=== PATIENT | male | born 1960 | race Caucasian/White ===

== ENCOUNTER → 2018-08-12 | Outpatient (CLI) | payer BC ==
[~2018-08-12] MED LIST: ANTI-HYPERTENSIVE; DIURETIC
--- NOTE | 2018-08-12 13:13 | Diagnostic Imaging Report ---
INDICATION: Chronic renal disease. TECHNIQUE: Multiple real-time grayscale sonographic images, color and duplex Doppler images were obtained of the urinary system. FINDINGS: The aortic velocity is 102 cm/sec. The RIGHT kidney measures 12.4 x 6.0 x 6.3 cm. The right renal parenchyma and collecting system appear unremarkable. The right renal artery is visualized in its mid and distal aspect. Non-visualization of the proximal right renal artery. The maximum renal artery velocity is 103cm/sec. The maximum renal artery/aortic ratio is 1.0. The LEFT kidney reported as surgically absent. There is presence of a right ureteral jet. Urinary bladder appearing unremarkable. Prevoid Volume: 179 mL. Postvoid volume: 1 mL. IMPRESSION: 1. Unremarkable right renal ultrasound with doppler. 2. Post left nephrectomy. 3. Unremarkable appearance urinary bladder. (RA/AO ratios > 3.0 may suggest potential hemodynamically significant stenosis.) Dictated by: Dictated on workstation # [id number]
== END ==
LOC: RAD 10:06
PROVIDERS: ATTEND Nurse Practitioner
DX: I12.9 Hypertensive chronic kidney disease with stage 1 through stage 4 chronic kidney disease, or unspecified chronic kidney disease (principal); N18.3 Chronic kidney disease, stage 3 (moderate); I51.7 Cardiomegaly; I34.0 Nonrheumatic mitral (valve) insufficiency; J44.9 Chronic obstructive pulmonary disease, unspecified; E66.9 Obesity, unspecified; E79.0 Hyperuricemia without signs of inflammatory arthritis and tophaceous disease; E78.5 Hyperlipidemia, unspecified; G47.33 Obstructive sleep apnea (adult) (pediatric); R73.01 Impaired fasting glucose; E55.9 Vitamin D deficiency, unspecified; N25.81 Secondary hyperparathyroidism of renal origin; Z90.5 Acquired absence of kidney; Z72.0 Tobacco use
CPT/HCPCS: 76770; 93975

== ENCOUNTER 2021-10-09 08:39 | Emergency (ER) | payer BC ==
[~2021-10-09] VITALS: Ht 175.2 cm; Wt 140.6 kg
[2021-10-09 08:59] LABS: BASOPHILS % (AUTO) 1 % (0-10); EOSINOPHILS # (AUTO) 0.2 10^3/uL (0.0-0.3); EOSINOPHILS % (AUTO) 2 % (0-10); HEMATOCRIT 44 % (40-54); HEMOGLOBIN 15.2 g/dL (13.3-17.7); LYMPHOCYTES # (AUTO) 1.7 10^3/uL (1.0-4.0); LYMPHOCYTES % (AUTO) 22 % (12-44); MEAN CORPUSCULAR HEMOGLOBIN 31 pg (25-34); MEAN CORPUSCULAR HGB CONC 34 g/dL (32-36); MEAN CORPUSCULAR VOLUME 90 fL (80-99); MONOCYTES # (AUTO) 0.4 10^3/uL (0.0-1.0); MONOCYTES % (AUTO) 5 % (0-12); NEUTROPHILS # (AUTO) 5.4 10^3/uL (1.8-7.8); NEUTROPHILS % (AUTO) 69 % (42-75); PLATELET COUNT 196 10^3/uL (130-400); WHITE BLOOD COUNT 7.8 10^3/uL (4.3-11.0)
[2021-10-09 09:18] LABS: POTASSIUM 4.4 MMOL/L (3.6-5.0)
[2021-10-09 09:19] LABS: CALCIUM 10.2 MG/DL (8.5-10.1)
[2021-10-09 09:23] LABS: CREATININE SERUM 1.53 MG/DL (0.60-1.30)
[2021-10-09 09:46] LABS: TSH (THYROID ANALYZER) 3.12 UIU/ML (0.35-4.94)
--- NOTE | 2021-10-09 11:37 | ED Cardiac General ---
History of Present Illness General Chief Complaint: Cardiac/General Problems Stated Complaint: AFIB Nursing Triage Note: PT AMB TO [facility] 6 AFTER BEING SENT FROM [facility] FOR NEW ONSET OF AFIB. DENIES HX OF AFIB. WENT TO [facility] FOR RIGHT SHOULDER SCOPE. STATES HE FEELS SOA. Source: patient Exam Limitations: no limitations History of Present Illness Date Seen by Provider: Oct 09, 2021 Time Seen by Provider: 08:52 Initial Comments This 61-year-old gentleman presents to the emergency room with concerns about atrial fibrillation and bradycardia identified at the surgery center in [place] where he was checked into have shoulder surgery today. Instead of having surgery, he was diverted to the emergency room for further evaluation. Heart rate is in the 40s. Patient and provide history. She states he has been unusually tired and coming in from work early in recent days. He also has notable lower extremity edema which is chronic. He was previously on diuretics but stopped due to concerns about his kidney health. He has a unilateral kidney after nephrectomy. He had ureteral and kidney damage after complications from a basket retrieval for kidney stone treatment. Patient notes history of obstructive sleep apnea but is noncompliant with his CPAP. He has no known history of arrhythmias prior to today. He is on multiple antihypertensive medications including rate limiting medications, clonidine and carvedilol. His primary care provider is Dr. Tavarez. Allergies and Home Medications Allergies Uncoded Allergies: Anesthesia, unknown med (Allergy, Severe, Anaphylaxis, 10/09/21) Patient Home Medication List Home Medication List Reviewed: Yes Apixaban (Eliquis) 5 Mg Tablet, 5 MG PO BID Prescribed by: CINTHYA HAAS on 10/09/21 1142 Triamterene/Hydrochlorothiazid (Triamterene-Hctz 37.5-25 mg Cp) 37.5 Mg-25 Mg Capsule, 1 EACH PO DAILY Prescribed by: CINTHYA HAAS on 10/09/21 1142 [Anti-Hypertensive] , (Reported) Entered as Reported by: AVA CAMACHO on 03/24/07 1406 [Diuretic] , (Reported) Entered as Reported by: AVA CAMACHO on 03/24/07 1405 Review of Systems Review of Systems Constitutional: see HPI EENTM: No Symptoms Reported Respiratory: No Symptoms Reported Cardiovascular: See HPI Gastrointestinal: No Symptoms Reported Genitourinary: No Symptoms Reported Musculoskeletal: see HPI Skin: no symptoms reported Psychiatric/Neurological: No Symptoms Reported Endocrine: No Symptoms Reported Hematologic/Lymphatic: No Symptoms Reported Past Axsfmyg-Rdwfqa-[id number] Hx Patient Social History Tobacco Use?: Yes Smokeless Tobacco Frequency: Current Everyday User Use of E-Cig and/or Vaping dev: Unable to obtain Substance use?: No Alcohol Use?: Yes Alcohol Frequency: Rarely Pt feels they are or have been: No Past Medical History Surgeries: Yes Gallbladder, Nephrectomy, Renal (Ureteral stones) Respiratory: Yes Sleep Apnea Cardiac: Yes Chronic Edema/Swelling, Hypertension Reproductive Disorders: No Genitourinary: Yes Kidney Stones, Renal Failure Gastrointestinal: No Musculoskeletal: Yes (Shoulder pain) Endocrine: No HEENT: No Cancer: No Psychosocial: No Integumentary: No Physical Exam Vital Signs Vital Signs - First Documented 10/09/21 08:44 Temp 36.5 Pulse 51 Resp 14 B/P (MAP) 145/75 (98) Pulse Ox 96 O2 Delivery Room Air Capillary Refill : Less Than 3 Seconds Height, Weight, BMI Height: 5'9.00" Weight: 301lbs. oz. 136.628183fc; 45.00 BMI Method: General Appearance: No Apparent Distress, WD/WN, Obese HEENT: PERRL/EOMI Neck: Normal Inspection; No JVD Respiratory: Lungs Clear, Normal Breath Sounds, No Accessory Muscle Use Cardiovascular: No Murmur, Bradycardia, Irregularly Irregular Gastrointestinal: Non Tender, Soft Extremity: Non Tender, Pedal Edema, Swelling Neurologic/Psychiatric: Alert, Oriented x3, No Motor/Sensory Deficits, Normal Mood/Affect, senior environmental engineer II-XII Norm as Tested Skin: Normal Color, Warm/Dry Progress/Results/Core Measures Results/Orders Lab Results Laboratory Tests Test 10/09/21 08:50 Range/Units White Blood Count 7.8 4.3-11.0 10^3/uL Red Blood Count 4.90 4.30-5.52 10^6/uL Hemoglobin 15.2 13.3-17.7 g/dL Hematocrit 44 40-54 % Mean Corpuscular Volume 90 80-99 fL Mean Corpuscular Hemoglobin 31 25-34 pg Mean Corpuscular Hemoglobin Concent 34 32-36 g/dL Red Cell Distribution Width 12.6 10.0-14.5 % Platelet Count 196 130-400 10^3/uL Mean Platelet Volume 10.0 9.0-12.2 fL Immature Granulocyte % (Auto) 0 % Neutrophils (%) (Auto) 69 42-75 % Lymphocytes (%) (Auto) 22 12-44 % Monocytes (%) (Auto) 5 0-12 % Eosinophils (%) (Auto) 2 0-10 % Basophils (%) (Auto) 1 0-10 % Neutrophils # (Auto) 5.4 1.8-7.8 10^3/uL Lymphocytes # (Auto) 1.7 1.0-4.0 10^3/uL Monocytes # (Auto) 0.4 0.0-1.0 10^3/uL Eosinophils # (Auto) 0.2 0.0-0.3 10^3/uL Basophils # (Auto) 0.0 0.0-0.1 10^3/uL Immature Granulocyte # (Auto) 0.0 0.0-0.1 10^3/uL Sodium Level 141 135-145 MMOL/L Potassium Level 4.4 3.6-5.0 MMOL/L Chloride Level 106 98-107 MMOL/L Carbon Dioxide Level 23 21-32 MMOL/L Anion Gap 12 5-14 MMOL/L Blood Urea Nitrogen 16 7-18 MG/DL Creatinine 1.53 H 0.60-1.30 MG/DL Estimat Glomerular Filtration Rate 51 BUN/Creatinine Ratio 10 Glucose Level 172 H 70-105 MG/DL Calcium Level 10.2 H 8.5-10.1 MG/DL Magnesium Level 2.0 1.6-2.4 MG/DL TSH [place] Testing 3.12 0.35-4.94 UIU/ML My Orders Orders - CINTHYA VELASCO MD Ekg Tracing (10/09/21 08:42) Basic Metabolic Panel (10/09/21 08:53) Cbc With Automated Diff (10/09/21 08:53) Magnesium (10/09/21 08:53) Thyroid Analyzer (10/09/21 08:53) Ed Iv/Invasive Line Start (10/09/21 08:53) Monitor-Rhythm Ecg Trace Only (10/09/21 08:53) Apixaban Tablet (Eliquis Tablet) (10/09/21 11:45) Medications Given in ED Current Medications Medications Dose Ordered Sig/Lamar Route Start Time Stop Time Status Last Admin Dose Admin Apixaban 10 mg ONCE ONCE PO 10/09/21 11:45 10/09/21 11:46 DC 10/09/21 12:36 10 MG Vital Signs/I&O 10/09/21 10/09/21 08:44 12:45 Temp 36.5 Pulse 51 59 Resp 14 11 B/P (MAP) 145/75 (98) 130/68 Pulse Ox 96 96 O2 Delivery Room Air Room Air Blood Pressure Mean: 98 Progress Progress Note : Progress Note Patient remained stable during his ER visit. I discussed the case with Dr. Forrest. He recommended stopping clonidine to improve heart rate and replacing it with triamterene/hydrochlorothiazide at a low dose to help with swelling and hypertension. Patient was started on Eliquis for anticoagulation. We did discuss risks and precautions related to anticoagulation. He reported no contraindications to anticoagulation. Appointment was made for Wednesday at Dr. Forrest's clinic. See discharge instructions for further discussion. Initial ECG Impression Date: Oct 09, 2021 Initial ECG Impression Time: 08:47 Initial ECG Rate: 63 Initial ECG Rhythm: A Fib/Flutter Initial ECG Impression: Atrial Fibrillation Comment Atrial fibrillation with no ST elevation or depression. No abnormal intervals or axis deviation. Bradycardia not documented on this EKG but is present on the monitor consistently. Departure Impression Primary Impression: New onset atrial fibrillation Additional Impression: Bradycardia Disposition: 01 HOME, SELF-CARE Condition: Stable Departure-Patient Inst. Decision time for Depature: 11:33 Referrals: ROCÍO TAVAREZ DO (PCP) Primary Care Physician CAROLINE TAVAREZ, MICAELA (Family) Primary Care Physician SILVANO FORREST MD FACP FAC CCDS Patient Instructions: Atrial Fibrillation, Going Home on Blood Thinners Add. Discharge Instructions: Stop clonidine. This should improve your heart rate. If heart rate still remains too low, the dose of carvedilol may need to be lowered or you may need to stop carvedilol as well. Start triamterene/hydrochlorothiazide as prescribed. If you are hesitant to take it every day due to your kidney function, you may start with every other day until you know how your kidneys respond. Start Eliquis (blood thinner) as prescribed. Avoid unnecessary activities that would place you at risk for trauma while on this medication. If you experience any unusual bleeding, return to the emergency room immediately. If you experience any trauma such as motor vehicle accident, head injury, etc. please also present to the emergency room promptly. Follow-up with Dr. Forrest (environmental health safety manager) at 2:00 PM on October 13. Please bring a photo ID, insurance information, and medications in the original bottles. See contact information below. If you have persistent blood pressures greater then 160 on the top number or 100 on the bottom number, please call for further instructions or return to the ER. If you have persistent heart rate less than 45, please also call for further instruction or return to the ER. Also return to the emergency room if you develop lightheadedness, dizziness, shortness of breath, or chest pain. Follow-up with your primary care provider soon as possible. All discharge instructions reviewed with patient and/or family. Voiced understanding. Scripts Apixaban (Eliquis) 5 Mg Tablet 5 MG PO BID for 30 Days, #74 TAB TAKE 2 TABLETS BID X 7 DAYS, THEN 1 TABLET BID Prov: CINTHYA VELASCO MD 10/09/21 Triamterene/Hydrochlorothiazid (Triamterene-Hctz 37.5-25 mg Cp) 37.5 Mg-25 Mg Capsule 1 EACH PO DAILY, #30 CAP Prov: CINTHYA VELASCO MD 10/09/21 Copy Copies To 1: ROCÍO TAVAREZ DO Copies To 2: SILVANO FORREST MD [facility] CINTHYA VELASCO MD Oct 09, 2021 11:37
[2021-10-09] MEDS ORDERED: APIX5TAB PO (11:42)
[2021-10-09] MEDS ORDERED: TRIA1CAP84 PO (11:42)
[2021-10-09] MEDS ORDERED: APIXABAN 5 MG (ELIQUIS) TABLET PO ONE (11:45)
[2021-10-09 12:45] VITALS: BP 130/68
== END 2021-10-09 12:45 | disposition home or self-care (01) ==
LOC: EDUNIT# 08:39 → ER 08:42
DX: I48.91 Unspecified atrial fibrillation (principal); I10 Essential (primary) hypertension; G47.33 Obstructive sleep apnea (adult) (pediatric); F17.220 Nicotine dependence, chewing tobacco, uncomplicated; Z99.89 Dependence on other enabling machines and devices; Z91.14 Patient's other noncompliance with medication regimen; Z79.899 Other long term (current) drug therapy
CPT/HCPCS: 36415; 80048; 83735; 84443; 85025; 93005; 93041

== ENCOUNTER → 2021-10-15 | Outpatient (CLI) | payer BC ==
[~2021-10-15] MED LIST changes: +APIX5TAB PO; +TRIA1CAP84 PO
== END ==
LOC: CARD 09:14
PROVIDERS: ATTEND Internal Medicine Cardiovascular Disease
DX: I51.7 Cardiomegaly (principal)
CPT/HCPCS: 93306

== ENCOUNTER 2021-10-21 09:00 | Day surgery (SDC) | payer BC ==
[2021-10-21] VITALS (13 sets, daily range): BP systolic 124–160; BP diastolic 68–87
[~2021-10-21] VITALS: Ht 175.3 cm; Wt 134.7 kg
[2021-10-21 07:27] LABS: HEMATOCRIT 45 % (40-54); HEMOGLOBIN 15.5 g/dL (13.3-17.7); MEAN CORPUSCULAR HEMOGLOBIN 31 pg (25-34); MEAN CORPUSCULAR HGB CONC 34 g/dL (32-36); MEAN CORPUSCULAR VOLUME 90 fL (80-99); MEAN PLATELET VOLUME 10.4 fL (9.0-12.2); PLATELET COUNT 222 10^3/uL (130-400); WHITE BLOOD COUNT 9.7 10^3/uL (4.3-11.0)
[2021-10-21 07:50] LABS: PROTHROMBIN TIME PATIENT 13.9 SEC (12.2-14.7)
[2021-10-21 07:51] LABS: ALBUMIN 4.1 GM/DL (3.2-4.5); BILIRUBIN,TOTAL 0.7 MG/DL (0.1-1.0); CALCIUM 10.3 MG/DL (8.5-10.1); CREATININE SERUM 2.05 MG/DL (0.60-1.30); POTASSIUM 4.2 MMOL/L (3.6-5.0); TOTAL PROTEIN 7.4 GM/DL (6.4-8.2)
[~2021-10-21 09:00] MED LIST changes: +ACET325T38 PO; +ALLO100T PO; +AMLO-251 PO; +CARV25TA PO; +HEParin (CATH LAB) 2,000 ML IV ONE; +LIDOCAINE 1% INJ 20 ML VIAL ONE; +LISI20TA26 PO; +NS IV 1000 ML 1,000 ML IV SCH; +NS IV 1000 ML 1,000 ML ONE; +TMSL.4C PO; +TRAM50TA3 PO
[2021-10-21] MEDS ORDERED: fentaNYL INJ 100 MCG/2 ML AMP ONE (09:49)
[2021-10-21] MEDS ORDERED: MIDAZOLAM 5 MG/5 ML (VERSED) VIAL ONE (09:49)
--- NOTE | 2021-10-21 11:03 | Cardiac Procedure Note-CS/ASA ---
Pre-Procedure Note Pre-Op Procedure Note H&P Reviewed The H&P was reviewed, patient examined and no changes noted. Date H&P Reviewed: Oct 21, 2021 Time H&P Reviewed: 10:00 Conscious Sedation Pre-Proced Time 10:00 ASA Score 4 For ASA 3 and 4: Consider anesthesia and medical clearance. Also, for patients with a history of failed moderate sedation consider anesthesia. Airway Lungs Heart ASA score ASA 1: a normal healthy patient ASA 2: a patient with a mild systemic disease (mid diabetes, controlled hypertension, obesity ASA 3: a patient with a severe systemic disease that limits activity (angina, COPD, prior Myocardial infarction) ASA 4: a patient with an incapacitating disease that is a constant threat to life (CHF, renal failure) ASA 5: a moribund patient not expected to survive 24 hrs. (ruptured aneurysm) ASA 6: a declared brain- patient whose organs are being harvested. For emergent operations, add the letter E after the classification Mallampati Classification Grade 2 Sedation Plan Analgesia, Amnesia, Plan communicated to team members The patient is an appropriate candidate to undergo the planned procedure, sedation, and anesthesia. The patient immediately re-assessed prior to indication. SILVANO DOHERTY MD FACP FAC CCDS Oct 21, 2021 11:03
[2021-10-21] MEDS ORDERED: PATIENT MAY USE OWN MEDS, ALL PO SCH (11:15)
[2021-10-21] MEDS ORDERED: ACETAMINOPHEN 325 MG TABLET PO PRN (11:15)
[2021-10-21] MEDS: NS IV 1000 ML 1,000 ML IV SCH (12:30)
--- NOTE | 2021-10-21 16:41 | CARDIAC CATHETERIZATION ---
DATE OF SERVICE: 10/21/2021 CARDIAC CATHETERIZATION REPORT INDICATION FOR PROCEDURE: The patient is a 61-year-old gentleman, who has multiple coronary artery disease risk factors and has been experiencing shortness of breath and chest discomfort that is consistent with new onset angina. Given symptoms and multiple coronary artery disease risk factors, cardiac catheterization was carried out today after having obtained an informed consent. His risk for contrast nephropathy is higher than usual, given baseline renal insufficiency. This was discussed with him in detail prior to the procedure. He provided informed consent. DESCRIPTION OF PROCEDURE: He was brought to the cardiac catheterization laboratory in a fasting state. Vigorous perioperative hydration was carried out starting before the procedure, continuing during the procedure, and continuing afterwards. This was to reduce risk of contrast nephropathy. Also, a minimal amount of contrast was used (12). We used the Modified Seldinger technique to advance a 5-Sammarinese sheath in the right femoral artery. We used a 5-Sammarinese JL4 catheter for left angiography, 5-Sammarinese JR4 catheter for right coronary angiography. We used a pigtail catheter for left heart catheterization and left ventricular angiography was not performed to conserve contrast. Minimal amount of dye was used to carry out angiography of the right femoral artery and a Mynx was used to achieve hemostasis. The total amount of contrast used during the study was 12 mL. HEMODYNAMICS: Left ventricular end-diastolic pressure following coronary angiography was 6 mmHg. There was no significant pressure gradient on pullback across the aortic valve. CORONARY ANGIOGRAPHY: Left main coronary artery, left circumflex artery, left anterior descending artery, right coronary artery are free of angiographically significant coronary artery disease. Right coronary artery is dominant. CONCLUSIONS: 1. No significant coronary artery disease is seen on this study. 2. Normal left ventricular end-diastolic pressure. DISCUSSION AND RECOMMENDATIONS: Based on results of the study, these symptoms do not appear to be of cardiac origin. Continuing risk factor modification is advised. Vigorous perioperative hydration is being continued to reduce risk of contrast nephropathy. Job ID: [id number] DocumentID: [id number] Dictated Date: 10/21/2021 10:53:11 Pathologist Date: 10/21/2021 16:40:49 Dictated By: SILVANO DOHERTY MD, MA, FACP, FACC,
[2021-10-21] MEDS ORDERED: APIXABAN 5 MG (ELIQUIS) TABLET PO SCH (21:00)
[2021-10-21] MEDS ORDERED: TAMSULOSIN 0.4 MG (FLOMAX) CAP PO SCH (21:00)
[2021-10-21] MEDS ORDERED: ALLOPURINOL 100 MG (ZYLOPRIM) TAB PO SCH (21:00)
[2021-10-21] MEDS ORDERED: amLODIPine 10 MG (NORVASC) TAB PO SCH (21:00)
[2021-10-22] MEDS: NS IV 1000 ML 1,000 ML IV SCH (01:23)
[2021-10-22 04:00] VITALS: BP 135/71
[2021-10-22 06:12] LABS: BASOPHILS # (AUTO) 0.1 10^3/uL (0.0-0.1); BASOPHILS % (AUTO) 1 % (0-10); EOSINOPHILS # (AUTO) 0.2 10^3/uL (0.0-0.3); EOSINOPHILS % (AUTO) 3 % (0-10); HEMATOCRIT 43 % (40-54); HEMOGLOBIN 14.8 g/dL (13.3-17.7); LYMPHOCYTES # (AUTO) 2.3 10^3/uL (1.0-4.0); LYMPHOCYTES % (AUTO) 27 % (12-44); MEAN CORPUSCULAR HEMOGLOBIN 31 pg (25-34); MEAN CORPUSCULAR HGB CONC 34 g/dL (32-36); MEAN CORPUSCULAR VOLUME 91 fL (80-99); MEAN PLATELET VOLUME 10.9 fL (9.0-12.2); MONOCYTES # (AUTO) 0.4 10^3/uL (0.0-1.0); MONOCYTES % (AUTO) 5 % (0-12); NEUTROPHILS # (AUTO) 5.6 10^3/uL (1.8-7.8); NEUTROPHILS % (AUTO) 65 % (42-75); PLATELET COUNT 173 10^3/uL (130-400); WHITE BLOOD COUNT 8.7 10^3/uL (4.3-11.0)
[2021-10-22 06:36] LABS: POTASSIUM 4.2 MMOL/L (3.6-5.0)
[2021-10-22 06:37] LABS: CALCIUM 9.9 MG/DL (8.5-10.1)
[2021-10-22 06:41] LABS: CREATININE SERUM 1.54 MG/DL (0.60-1.30)
[2021-10-22 06:44] LABS: MAGNESIUM 1.8 MG/DL (1.6-2.4)
[2021-10-22 08:25] VITALS: BP 133/83
--- NOTE | 2021-10-22 09:21 | Progress Note - Cardiology ---
Cardiology SOAP Progress Note Subjective: Sitting up on the side of the bed No c/o CP, SOB or palpitations No c/o right groin discomfort Wants to go home Objective: I&O/Vital Signs 10/21/21 10/22/21 10/22/21 10/22/21 23:54 01:00 04:00 06:27 Temp 37.0 Pulse 52 63 49 45 Resp 15 18 B/P (MAP) 141/82 (100) 135/71 (92) Pulse Ox 95 95 O2 Delivery Room Air Room Air 10/22/21 10/22/21 08:00 08:25 Temp 36.7 Pulse 48 Resp 17 B/P (MAP) 133/83 (100) Pulse Ox 98 97 O2 Delivery Room Air Room Air 10/22/21 00:00 Intake Total 1650 ml Balance 1650 ml Weight (Pounds): 301 Weight (Calculated Kilograms): 136.663881 Side: right Groin site without hematoma: Yes Bruising: mild bruising Constitutional: AAO x 3, well-developed, well-nourished Respiratory: No accessory muscle use, No respiratory distress; chest expansion is symmetric, chest is bilaterally symmetric, lungs clear to auscultation Cardiovascular: regular rate-rhythm; No JVD; S1 and S2 Gastrointestional: No tender; soft, round, audible bowel sounds Extremities: no lower extremity edema bilateral Neurologic/Psychiatric: grossly intact (moves all extremities) Skin: No rash on exposed areas, No ulcerations on exposed areas Results/Procedures: Labs Laboratory Tests 10/22/21 05:24: White Blood Count 8.7, Red Blood Count 4.77, Hemoglobin 14.8, Hematocrit 43, Mean Corpuscular Volume 91, Mean Corpuscular Hemoglobin 31, Mean Corpuscular Hemoglobin Concent 34, Red Cell Distribution Width 12.4, Platelet Count 173, Mean Platelet Volume 10.9, Immature Granulocyte % (Auto) 0, Neutrophils (%) (Auto) 65, Lymphocytes (%) (Auto) 27, Monocytes (%) (Auto) 5, Eosinophils (%) (Auto) 3, Basophils (%) (Auto) 1, Neutrophils # (Auto) 5.6, Lymphocytes # (Auto) 2.3, Monocytes # (Auto) 0.4, Eosinophils # (Auto) 0.2, Basophils # (Auto) 0.1, Immature Granulocyte # (Auto) 0.0, Sodium Level 138, Potassium Level 4.2, Chloride Level 108H, Carbon Dioxide Level 19L, Anion Gap 11, Blood Urea Nitrogen 20H, Creatinine 1.54H, Estimat Glomerular Filtration Rate 50, BUN/Creatinine Ratio 13, Glucose Level 148H, Calcium Level 9.9, Magnesium Level 1.8 Laboratory Tests 10/21/21 07:21 10/22/21 05:24 A/P: Assessment: Newly dx a-fib at time of ED visit on 10-09-2021 - OAC with Eliquis started to reduce risk of thromboembolic stroke - clonidine d/c' because of bradycardia - Coreg dose reduced d/t bradycardia (albeit asymptomatic) Cardiac cath of 10-21-21: No significant coronary artery disease is seen on this study. Normal left ventricular end-diastolic pressure. Echocardiogram of 10-15-21 showed LVEF 60-65% DM II (blood sugar 172 fasting) Severe hypertension - Dyazide started to control bp Single kidney (R kidney). L kidney reportedly atrophic CKD - Cr improved following IVF hydration Obesity, BMI approx 44 JUAN R - non-compliant with treatment - advised compliance Plan: S/P cardiac cath (see report from 10-21-21) Renal function improved following IV hydration D/t bradycardia we are reducing Coreg to 12.5mg BID Continue Eliquis for stroke prophylaxis Advise compliance with CPAP tx Advise f/u in 4 weeks Advise BMP in one week Ok to discharge home RUMA ODOM Oct 22, 2021 09:21
[2021-10-22] MEDS ORDERED: CARV12.53 PO (09:31)
[2021-10-22] MEDS ORDERED: TRIA1CAP84 PO ×2 (09:31→09:36)
--- NOTE | 2021-10-22 09:33 | Discharge Inst-Cardiology ---
Discharge Inst-Cardiac Discharge Medications New Medications: Carvedilol (Carvedilol) 12.5 Mg Tablet 12.5 MG PO BID, #60 TAB 3 Refills Continued Medications: Acetaminophen (Tylenol) 325 Mg Tablet 650 MG PO Q6H PRN for PAIN-MILD (1-4), TAB Allopurinol (Allopurinol) 100 Mg Tablet 100 MG PO HS, TAB Amlodipine Besylate (Amlodipine Besylate) 10 Mg Tablet 10 MG PO HS, TAB Apixaban (Eliquis) 5 Mg Tablet 5 MG PO BID, TAB Tamsulosin HCl (Flomax) 0.4 Mg Cap 0.4 MG PO HS, CAP Tramadol HCl (Tramadol HCl) 50 Mg Tablet 100 MG PO HS, TAB TAKES 2 (50MG) TABLETS Triamterene/Hydrochlorothiazid (Triamterene-Hctz 37.5-25 mg Cp) 37.5 Mg-25 Mg Capsule 1 EACH PO HS, #30 CAP 3 Refills (This prescription has been renewed) Discontinued Medications: Carvedilol (Carvedilol) 25 Mg Tablet 25 MG PO HS, TAB Lisinopril (Lisinopril) 20 Mg Tablet 20 MG PO HS, TAB New, Converted or Re-Newed RX: Transmitted to Pharmacy Patient Instructions Patient Instructions: Please contact strap machine operator automatic (your kidney doctor) and discuss continuation of Triamterene/HCTZ. Please stop the Lisinopril Repeat lab in one week: BMP and Please schedule follow up appointment to see Dr. Forrest in 4 weeks RUMA ODOM Oct 22, 2021 09:33
--- NOTE | 2021-10-22 14:11 | Progress Note - Cardiology ---
Cardiology SOAP Progress Note Subjective: No cp or palp or syncope or shortness of breath No leg or groin discomfort No n/v/d Generally feels well Objective: I&O/Vital Signs 10/22/21 10/22/21 10/22/21 10/22/21 04:00 06:27 08:00 08:25 Temp 37.0 36.7 Pulse 49 45 48 Resp 18 17 B/P (MAP) 135/71 (92) 133/83 (100) Pulse Ox 95 98 97 O2 Delivery Room Air Room Air Room Air 10/22/21 10:25 B/P (MAP) 10/22/21 00:00 Intake Total 1650 ml Balance 1650 ml Weight (Pounds): 301 Weight (Calculated Kilograms): 136.566762 Side: right Groin site without hematoma: Yes Bruising: mild bruising Constitutional: AAO x 3, well-developed, well-nourished Respiratory: No accessory muscle use, No respiratory distress; chest expansion is symmetric, chest is bilaterally symmetric, lungs clear to auscultation Cardiovascular: regular rate-rhythm; No JVD; S1 and S2 Gastrointestional: No tender; soft, round, audible bowel sounds Extremities: no lower extremity edema bilateral Neurologic/Psychiatric: grossly intact (moves all extremities) Skin: No rash on exposed areas, No ulcerations on exposed areas Results/Procedures: Labs Laboratory Tests 10/22/21 05:24: White Blood Count 8.7, Red Blood Count 4.77, Hemoglobin 14.8, Hematocrit 43, Mean Corpuscular Volume 91, Mean Corpuscular Hemoglobin 31, Mean Corpuscular Hemoglobin Concent 34, Red Cell Distribution Width 12.4, Platelet Count 173, Mean Platelet Volume 10.9, Immature Granulocyte % (Auto) 0, Neutrophils (%) (Auto) 65, Lymphocytes (%) (Auto) 27, Monocytes (%) (Auto) 5, Eosinophils (%) (Auto) 3, Basophils (%) (Auto) 1, Neutrophils # (Auto) 5.6, Lymphocytes # (Auto) 2.3, Monocytes # (Auto) 0.4, Eosinophils # (Auto) 0.2, Basophils # (Auto) 0.1, Immature Granulocyte # (Auto) 0.0, Sodium Level 138, Potassium Level 4.2, Chloride Level 108H, Carbon Dioxide Level 19L, Anion Gap 11, Blood Urea Nitrogen 20H, Creatinine 1.54H, Estimat Glomerular Filtration Rate 50, BUN/Creatinine Ratio 13, Glucose Level 148H, Calcium Level 9.9, Magnesium Level 1.8 Microbiology 10/21/21 MRSA Screen - Final, Complete MRSA not isolated Laboratory Tests 10/21/21 07:21 10/22/21 05:24 A/P: Assessment: Newly dx a-fib at time of ED visit on 10-09-2021 - OAC with Eliquis started to reduce risk of thromboembolic stroke - clonidine d/c' because of bradycardia - Coreg dose reduced d/t bradycardia (albeit asymptomatic) Cardiac cath of 10-21-21: No significant coronary artery disease is seen on this study. Normal left ventricular end-diastolic pressure. Echocardiogram of 10-15-21 showed LVEF 60-65% DM II (blood sugar 172 fasting) Severe hypertension - Dyazide started to control bp Single kidney (R kidney). L kidney reportedly atrophic CKD - Cr improved following IVF hydration Obesity, BMI approx 44 JUAN R - non-compliant with treatment - advised compliance Plan: S/P cardiac cath (see report from 10-21-21) Renal function improved following IV hydration D/t bradycardia we are reducing Coreg to 12.5mg BID Continue Eliquis for stroke prophylaxis Advise compliance with CPAP tx MARVIN-inhib held to reduce risk of contrast nephropathy. Advised f/u with his nephrologis Advise f/u in 4 weeks Advise BMP in one week Ok to discharge home Questions answered and risk factor mod discussed in detail SILVANO DOHERTY MD FACP FAC CCDS Oct 22, 2021 14:11
== END 2021-10-22 10:20 | disposition home or self-care (01) ==
LOC: CATH 09:00 → CSD 11:30 → CATH 10-22 10:20
PROVIDERS: ATTEND Internal Medicine Cardiovascular Disease
DX: R07.89 Other chest pain (principal); R06.02 Shortness of breath; I10 Essential (primary) hypertension; E11.9 Type 2 diabetes mellitus without complications; G47.33 Obstructive sleep apnea (adult) (pediatric); I48.0 Paroxysmal atrial fibrillation; R06.09 Other forms of dyspnea; E66.9 Obesity, unspecified; Z68.41 Body mass index [BMI] 40.0-44.9, adult; Z79.01 Long term (current) use of anticoagulants
CPT/HCPCS: 80048; 80053; 80061; 83735; 85025; 85027; 85610; 85730; 87081; 93005; 93458; C1760; C1894; 36415